=== PATIENT | female | born 1965 | race Caucasian/White ===

== ENCOUNTER 2020-10-15 12:09 | Emergency (ER) | payer OTHER, SELFPAY ==
[2020-10-15 12:27] VITALS: BP 206/102; PULSE 84; RESP 26; TEMP 37; O2SAT 99; BMI 36.1
--- NOTE | 2020-10-15 14:03 | DI.RAD.S_ITS ---
PROCEDURE: XR CHEST 1V INDICATIONS: chest pain TECHNIQUE: One view of the chest was acquired. COMPARISON: None. FINDINGS: Surgical changes and devices: None. Lungs and pleura: Lungs are clear. No pleural effusions or pneumothorax. Mediastinum: Mediastinal contours appear normal. Heart size is normal. Bones and chest wall: No suspicious bony lesions. Overlying soft tissues appear unremarkable. IMPRESSION: No acute cardiopulmonary pathology. Dictated by: Boris Stapleton M.D. on 10/15/2020 at 14:31 Approved by: Boris Stapleton M.D. on 10/15/2020 at 14:35
[2020-10-15 14:46] LABS: Add Manual Diff / Slide Review NO; Basophils Absolute Auto 100 /uL (0-100); Basophils Percent Auto 0.8 % (0-2); Eosinophils Absolute Auto 0 /uL (0-450); Eosinophils Percent Auto 0.7 % (2-4); Hematocrit 41.3 % (36-46); Hemoglobin 14.1 g/dL (12.0-16.0); Lymphocytes Absolute Auto 1200 /uL (1100-4500); Lymphocytes Percent Auto 16.9 % (25-40); Mean Corpuscular HGB Conc 34.2 % (30-36); Mean Corpuscular Hemoglobin 31.7 PG (26-34); Mean Corpuscular Volume 92.8 fL (80-100); Monocytes Absolute Auto 200 /uL (0-900); Monocytes Percent Auto 3.1 % (3-14); Neutrophils Absolute Auto 5700 /uL (1500-7000); Neutrophils Percent Auto 78.5 % (50-75); Platelet Count 256 X10^3/uL (150-400); Red Blood Cell Count 4.45 X10^6/uL (4.0-5.2); Red Cell Distribution Width 12.7 % (11.6-14.8); White Blood Cell Count 7.3 X10^3/uL (4.5-11.0)
[2020-10-15 14:58] LABS: Alanine Aminotransferase 18 IU/L (<35); Albumin 4.4 g/dL (3.5-5.0); Albumin Globulin Ratio 1.3 (1.0-2.8); Alkaline Phosphatase 72 U/L (38-126); Aspartate Aminotransferase 29 IU/L (14-36); BUN Creatinine Ratio 23.1 (6-22); Bilirubin Total 0.8 mg/dL (0.2-1.3); Blood Urea Nitrogen 15 mg/dL (7-17); Carbon Dioxide 28 mmol/L (22-32); Chloride 105 mmol/L (98-107); Creatine Kinase 70 U/L (30-135); Estimated Glomerular Filt Rate > 60.0 mL/min (>60); Globulin 3.3 g/dL (1.7-4.1); Glucose 105 mg/dL (70-100); HEMOLYSIS < 15 (0-50); Lipase 129 U/L (23-300); Potassium 3.3 mmol/L (3.4-5.1); Sodium 140 mmol/L (137-145); Total Protein 7.7 g/dL (6.3-8.2)
[2020-10-15 15:09] LABS: Troponin I < 0.012 ng/mL (0.01-0.034)
--- NOTE | 2020-10-15 16:28 | ED_ITS ---
HPI - Chest Pain General Chief Complaint: Chest Pain Stated Complaint: chest pain/thinks it may be a panic attack Time Seen by Provider: 10/15/20 16:27 Source: patient and family () Mode of arrival: Wheelchair Limitations: no limitations History of Present Illness HPI narrative: This is a 55-year-old female who comes emergency department with complaint of chest pain, shortness of breath and tingling of her upper extremities that began shortly during a verbal altercation with her spouse and was feeling significantly stressed at that time. Patient states her chest discomfort is almost completely gone. She is no longer feeling tingly. She no longer feels short of breath. She denies any syncope or passing out. She denies any lightheadedness but did feel dizzy. She denies any fevers or chills. No cold cough or congestion. She had some nausea but no active vomiting. No swelling in her extremities. Patient does take medication for hypertension. She does not have any known prior cardiac history. She had a stress test many years ago. She does have a family history with her father dying or heart attack in his 60s. Patient denies any daily aspirin. No tobacco, no alcohol or illicit. Related Data Allergies Allergy/AdvReac Type Severity Reaction Status Date / Time Penicillins Allergy Hives Verified 10/15/20 12:32 Review of Systems Review of Systems ROS Unobtainable: All systems reviewed & are unremarkable except as noted in HPI and below Patient History Medical History (Updated 10/15/20 @ 20:12 by Tatianna Berkowitz DO) Hypertension Social History Smoking Status: Never smoker Smoking Status: Never smoker Substance Use Type: does not use Exam Narrative Exam Narrative: GENERAL: Alert and oriented x three, BMI 36 and in mild distress. HEENT: Head normocephalic, atraumatic, EOMI, pupils reactive, face symmetric, moist mucous membranes NECK: Supple, full range of motion CARDIOVASCULAR: Regular rate and rhythm without murmurs, rubs or gallops. No JVD. RESPIRATORY: Breath sounds equal bilaterally, no wheezes rales or rhonchi. ABDOMEN: Soft, nontender. Normoactive bowel sounds all 4 quadrants. No guarding or rebound, rigidity, no mass : No CVA tenderness EXTREMITIES: Normal range of motion, no clubbing or edema. Neurovascularly intact NEUROLOGICAL: Cranial nerves II through XII grossly intact. Moving all extremities SKIN: Warm, dry, no petechiae, no rashes or lesions. Initial Vital Signs Initial Vital Signs: Vital Signs Temperature 98.6 F 10/15/20 12:27 Pulse Rate 84 10/15/20 12:27 Respiratory Rate 26 H 10/15/20 12:27 Blood Pressure 206/102 H 10/15/20 12:27 Pulse Oximetry 99 10/15/20 12:27 Scores HEART Score Heart Score history: Slightly Suspicious Heart Score EKG: Non-Specific repolarization disturbance Heart Score Age: 45-64 years old Heart Score risk factors: 1-2 risk factors Heart Score troponin: < or = to normal limit Heart Score Total: 3 Course Orders Ordered: ED Orders 10/15/20 12:32 EKG-12 Lead Stat 10/15/20 14:03 XR chest 1V Stat 10/15/20 14:41 Complete Blood Count AUTO DIFF Stat Comprehensive Metabolic Panel Stat Lipase Stat Troponin & CK Cardiac Panel Stat 10/15/20 16:45 Troponin I Stat 10/15/20 17:04 EKG-12 Lead Stat Discontinued Medications Potassium Chloride (Potassium Chloride 20 Meq Tab) 40 meq PO NOW ONE Stop: 10/15/20 16:30 Last Admin: 10/15/20 16:44 Dose: 40 meq Documented by: NERISSA Vital Signs Vital signs: Vital Signs - 8 hr 10/15/20 12:27 10/15/20 18:11 Temperature 98.6 F Pulse Rate 84 73 Respiratory Rate 26 H 12 Blood Pressure 206/102 H 138/85 Pulse Oximetry 99 98 MDM - Chest Pain Lab Data Attestation: I reviewed the patient's lab results. Result diagrams: 10/15/20 14:41 10/15/20 14:41 Labs: Lab Results 10/15/20 10/15/20 10/15/20 Range/Units 14:41 14:41 16:45 WBC 7.3 (4.5-11.0) X10^3/uL RBC 4.45 (4.0-5.2) X10^6/uL Hgb 14.1 (12.0-16.0) g/dL Hct 41.3 (36-46) % MCV 92.8 (80-100) fL MCH 31.7 (26-34) PG MCHC 34.2 (30-36) % RDW 12.7 (11.6-14.8) % Plt Count 256 (150-400) X10^3/uL Neut % (Auto) 78.5 H (50-75) % Lymph % (Auto) 16.9 L (25-40) % Wilson % (Auto) 3.1 (3-14) % Eos % (Auto) 0.7 L (2-4) % Baso % (Auto) 0.8 (0-2) % Neut # (Auto) 5700 (8478-5739) /uL Lymph # (Auto) 1200 (0528-5537) /uL Wilson # (Auto) 200 (0-900) /uL Eos # (Auto) 0 (0-450) /uL Baso # (Auto) 100 (0-100) /uL Sodium 140 (137-145) mmol/L Potassium 3.3 L (3.4-5.1) mmol/L Chloride 105 (98-107) mmol/L Carbon Dioxide 28 (22-32) mmol/L BUN 15 (7-17) mg/dL Creatinine 0.65 (0.52-1.04) mg/dL Estimated GFR > 60.0 (>60) mL/min BUN/Creatinine Ratio 23.1 H (6-22) Glucose 105 H (70-100) mg/dL Calcium 10.0 (8.4-10.2) mg/dL Total Bilirubin 0.8 (0.2-1.3) mg/dL AST 29 (14-36) IU/L ALT 18 (<35) IU/L Alkaline Phosphatase 72 (38-126) U/L Total Creatine Kinase 70 (30-135) U/L CK-MB (CK-2) TNP CK-MB (CK-2) Rel Index TNP Troponin I < 0.012 < 0.012 (0.01-0.034) ng/mL Total Protein 7.7 (6.3-8.2) g/dL Albumin 4.4 (3.5-5.0) g/dL Globulin 3.3 (1.7-4.1) g/dL Albumin/Globulin Ratio 1.3 (1.0-2.8) Lipase 129 (23-300) U/L Imaging Data Chest x-ray: Radiologist's Impression: [address] [id number] ReportSigned Patient: Ramona AmosMR#: [id number]: 1965Acct:[id number]/Sex: 55 / FDate of Service: 10/15/20Loc: EDAccession Number: [id number] Procedure: XR chest 1V Ordering Provider: Tatianna Berkowitz D.O. PROCEDURE: XR CHEST 1V INDICATIONS: chest pain TECHNIQUE: One view of the chest was acquired. COMPARISON: None. FINDINGS: Surgical changes and devices: None. Lungs and pleura: Lungs are clear. No pleural effusions or pneumothorax. Mediastinum: Mediastinal contours appear normal. Heart size is normal. Bones and chest wall: No suspicious bony lesions. Overlying soft tissues appear unremarkable. IMPRESSION: No acute cardiopulmonary pathology. Dictated by: Boris Stapleton M.D. on 10/15/2020 at 14:31 Approved by: Boris Stapleton M.D. on 10/15/2020 at 14:35 ECG Data Attestation: I personally reviewed and interpreted this ECG as follows: Prior ECG tracings: not available for review Interpretation: Sinus rhythm rate of 78 OK 168 QRS of [address] No [address] elevation or depression appreciated. No prior available. EKG 2. Sinus rhythm rate of 70 OK 186 QRS of [address] No acute [address] elevation depression noted. MDM Narrative Medical decision making narrative: 55-year-old female with acute chest pain during a stressful event. Patient's EKG does not show any clear changes today. Troponin x2 is negative. Patient does have some risk factors with hypertension and a family history. Patient and I discussed that she would likely benefit from stress testing as an outpatient. All questions were answered but does not appear to have been having acute coronary event today Discharge Plan Departure Patient Disposition: Home Clinical Impression: Chest pain Instructions: DI for Chest Pain Activity Restrictions/Additional Instructions: Follow-up with your physician for recheck this following week. I would recommend talking to them about stress testing. You do have some risk factors with her family history and history of hypertension. I would not really encourage spending the weekend and 113 degree heat. Please return for new or worsening symptoms, lightheadedness or passing out, recurrent worsening chest pain or pressure, persistent sweatiness, persistent vomiting, black or bloody stools, new swelling in her extremities or other new or concerning symptoms.
[2020-10-15] MEDS: POTASSIUM CHLORIDE 20 MEQ TAB 40 MEQ PO (16:44)
[2020-10-15 17:13] LABS: Troponin I < 0.012 ng/mL (0.01-0.034)
--- NOTE | 2020-10-15 18:09 | PC.NURSE ---
Patient reports increase stress this morning when chest pain started. Hyperventilating with tingling in hands. Patient reports history of anxiety and panic attacks.
[2020-10-15 18:11] VITALS: BP 138/85; PULSE 73; RESP 12; O2SAT 98
== END 2020-10-15 18:11 | disposition home or self-care (01) ==
PROVIDERS: Emergency Provider Emergency Medicine
DX: R07.9 Chest pain, unspecified (principal); R06.02 Shortness of breath; R20.2 Paresthesia of skin
CPT/HCPCS: 36415; 71045; 80053; 82550; 83690; 84484; 85025; 93005; 93010; 99284